=== PATIENT | male | born 1970 | race Caucasian/White ===

== ENCOUNTER 2024-06-02 10:06 | Emergency (ER) | payer SELFPAY ==
[~2024-06-02] VITALS: Ht 177.8 cm; Wt 88.6 kg
[2024-06-02 10:10] VITALS: O2SAT 99
[2024-06-02 10:17] VITALS: BP 160/90; PULSE 88; RESP 18; TEMP 98.5; O2SAT 98
== END 2024-06-02 11:15 | disposition left against medical advice (07) ==
LOC: ER 10:06
DX: M79.603 Pain in arm, unspecified (principal); Z53.21 Procedure and treatment not carried out due to patient leaving prior to being seen by health care provider